=== PATIENT | male | born 1960 | race Caucasian/White ===

== ENCOUNTER 2017-10-05 19:06 | Inpatient (IN) | payer OTHER, BC ==
[2017-10-05] MEDS: ASPIRIN 81 MG TAB PO (19:25)
[2017-10-05] MEDS: SOD CHLORIDE 0.9% 500 ML IV (19:26)
[2017-10-05 19:43] LABS: ADD MAN DIFF? NO
[2017-10-05 19:45] LABS: WHITE BLOOD COUNT 9.2 10^3/ul (4.8-10.8)
[2017-10-05 19:45] LABS: BASOPHIL # 0.1 10^3/ul (0.0-0.1); BASOPHILS % 0.5 % (0.0-2.0); EOSINOPHILS # 0.1 10^3/ul (0.0-0.5); HEMATOCRIT 45.2 % (42.0-52.0); HEMOGLOBIN 14.8 g/dl (14.0-18.0); LYMPHOCYTES # 2.3 10^3/ul (0.8-2.9); LYMPHOCYTES % 24.8 % (15.0-51.0); MEAN CORPUSCULAR HEMOGLOBIN 25.2 pg (29.0-33.0); MEAN CORPUSCULAR HGB CONC 32.7 g/dl (32.0-37.0); MEAN PLATELET VOLUME 10.5 fl (7.4-10.4); MONOCYTE # 0.6 10^3/ul (0.3-0.9); MONOCYTES % 6.2 % (0.0-11.0); NEUTROPHIL # 6.2 10^3/ul (1.6-7.5); NEUTROPHILS % 67.2 % (39.0-77.0); PLATELET COUNT 244 10^3/UL (140-415); RED BLOOD COUNT 5.87 10^6/ul (4.70-6.10); RED CELL DISTRIBUTION WIDTH 13.3 % (11.5-14.5)
[2017-10-05 20:05] LABS: ALANINE AMINOTRANSFERASE 28 IU/L (13-69); ALBUMIN 4.3 g/dl (3.3-4.9); ALBUMIN/GLOBULIN RATIO 1.22; ALKALINE PHOSPHATASE 71 IU/L (42-121); ANION GAP 15 (8-16); ASPARTATE AMINO TRANSFERASE 20 IU/L (15-46); BILIRUBIN,INDIRECT 0.9 mg/dl (0-1.1); BILIRUBIN,TOTAL 0.9 mg/dl (0.2-1.3); BLOOD UREA NITROGEN 20 mg/dl (7-20); CARBON DIOXIDE 24 mmol/L (21-31); CHLORIDE 104 mmol/L (97-110); CREATININE 1.01 mg/dl (0.61-1.24); GLUCOSE 150 mg/dl (70-220); LIPASE 37 U/L (23-300); POTASSIUM 3.7 mmol/L (3.5-5.1); SODIUM 139 mmol/L (135-144); TOTAL PROTEIN 7.8 g/dl (6.1-8.1)
[2017-10-05 20:28] LABS: TROPONIN-I < 0.012 ng/ml (0.000-0.120)
[2017-10-05 20:29] LABS: B-TYPE NATRIURETIC PEPTIDE 79 PG/ML (0-125)
[2017-10-06] MEDS ORDERED: morphine 2 MG INJ IV (07:30)
[2017-10-06] MEDS ORDERED: ALBUTEROL/IPRATROPIUM (NEB) 3 ML AMP HHN (07:30)
[2017-10-06] MEDS ORDERED: NACL 0.9% 3 ML SYG IV (07:30)
[2017-10-06] MEDS ORDERED: ACETAMINOPHEN 325 MG TAB PO (07:30)
[2017-10-06] MEDS ORDERED: ONDANSETRON 4 MG INJ IV (07:30)
[2017-10-06] MEDS ORDERED: NITROGLYCERIN (SL) 0.4 MG TAB SL (07:30)
[2017-10-06] MEDS: PANTOPRAZOLE (EC) 40 MG TAB PO (08:55)
[2017-10-06] MEDS: ASPIRIN 81 MG TAB PO (08:55)
[2017-10-06] MEDS: ENOXAPARIN 40 MG/0.4 ML SYG SC (08:55)
[2017-10-06] MEDS ORDERED: NON-FORMULARY/PATIENT OWN MED (Omeprazole* 20 MG) PO (09:00)
[2017-10-06] MEDS: FLUOXETINE 20 MG CAP PO (09:23)
[2017-10-06] MEDS ORDERED: ZOLPIDEM 5 MG TAB PO (10:00)
[2017-10-06] MEDS ORDERED: hydrALAzine 20 MG INJ IV (10:00)
[2017-10-06 11:43] LABS: ADD MAN DIFF? NO
[2017-10-06 11:46] LABS: WHITE BLOOD COUNT 8.3 10^3/ul (4.8-10.8)
[2017-10-06 11:46] LABS: BASOPHILS % 0.5 % (0.0-2.0); EOSINOPHILS # 0.1 10^3/ul (0.0-0.5); EOSINOPHILS % 1.2 % (0.0-7.0); HEMATOCRIT 48.6 % (42.0-52.0); HEMOGLOBIN 15.7 g/dl (14.0-18.0); LYMPHOCYTES # 1.9 10^3/ul (0.8-2.9); LYMPHOCYTES % 22.6 % (15.0-51.0); MEAN CORPUSCULAR HEMOGLOBIN 25.2 pg (29.0-33.0); MEAN CORPUSCULAR HGB CONC 32.3 g/dl (32.0-37.0); MEAN CORPUSCULAR VOLUME 78.1 fl (82.0-101.0); MEAN PLATELET VOLUME 10.8 fl (7.4-10.4); MONOCYTE # 0.5 10^3/ul (0.3-0.9); MONOCYTES % 5.7 % (0.0-11.0); NEUTROPHIL # 5.8 10^3/ul (1.6-7.5); NEUTROPHILS % 69.6 % (39.0-77.0); PLATELET COUNT 212 10^3/UL (140-415); RED BLOOD COUNT 6.22 10^6/ul (4.70-6.10); RED CELL DISTRIBUTION WIDTH 13.5 % (11.5-14.5)
[2017-10-06 11:59] LABS: HEMOGLOBIN A1C 7.6 % (0-5.9)
[2017-10-06 12:10] LABS: CHOL/HDL RATIO 4.2 RATIO; HDL CHOLESTEROL 48 mg/dl (28-71); LDL CHOLESTEROL,CALCULATED 126 mg/dl; TRIGLYCERIDES 150 mg/dl (0-149)
[2017-10-06 12:10] LABS: CHOLESTEROL 204 mg/dl (100-200)
[2017-10-06 12:21] LABS: TROPONIN-I < 0.012 ng/ml (0.000-0.120)
[2017-10-06] MEDS: SOD CHLORIDE 0.9% 100 ML (17:43)
[2017-10-06] MEDS: IOHEXOL 100 ML (17:43)
[2017-10-06] MEDS: NITROGLYCERIN AEROSOL (4.9 GM) (18:06)
[2017-10-06 20:31] LABS: TROPONIN-I < 0.012 ng/ml (0.000-0.120)
[2017-10-07 05:15] LABS: ADD MAN DIFF? NO
[2017-10-07 05:18] LABS: WHITE BLOOD COUNT 7.9 10^3/ul (4.8-10.8)
[2017-10-07 05:18] LABS: BASOPHIL # 0.1 10^3/ul (0.0-0.1); BASOPHILS % 0.6 % (0.0-2.0); EOSINOPHILS # 0.2 10^3/ul (0.0-0.5); EOSINOPHILS % 1.9 % (0.0-7.0); HEMATOCRIT 45.5 % (42.0-52.0); HEMOGLOBIN 14.9 g/dl (14.0-18.0); LYMPHOCYTES # 1.7 10^3/ul (0.8-2.9); LYMPHOCYTES % 21.7 % (15.0-51.0); MEAN CORPUSCULAR HEMOGLOBIN 25.5 pg (29.0-33.0); MEAN CORPUSCULAR HGB CONC 32.7 g/dl (32.0-37.0); MEAN CORPUSCULAR VOLUME 77.9 fl (82.0-101.0); MEAN PLATELET VOLUME 10.6 fl (7.4-10.4); MONOCYTE # 0.6 10^3/ul (0.3-0.9); MONOCYTES % 7.4 % (0.0-11.0); NEUTROPHIL # 5.4 10^3/ul (1.6-7.5); NEUTROPHILS % 68.3 % (39.0-77.0); PLATELET COUNT 206 10^3/UL (140-415); RED BLOOD COUNT 5.84 10^6/ul (4.70-6.10); RED CELL DISTRIBUTION WIDTH 13.4 % (11.5-14.5)
[2017-10-07] MEDS: PANTOPRAZOLE (EC) 40 MG TAB PO (05:30)
[2017-10-07 05:32] LABS: ALANINE AMINOTRANSFERASE 30 IU/L (13-69); ALBUMIN 4.3 g/dl (3.3-4.9); ALBUMIN/GLOBULIN RATIO 1.43; ALKALINE PHOSPHATASE 61 IU/L (42-121); ANION GAP 17 (8-16); ASPARTATE AMINO TRANSFERASE 20 IU/L (15-46); BILIRUBIN,INDIRECT 1.2 mg/dl (0-1.1); BILIRUBIN,TOTAL 1.2 mg/dl (0.2-1.3); BLOOD UREA NITROGEN 15 mg/dl (7-20); CALCIUM 9.1 mg/dl (8.4-10.2); CARBON DIOXIDE 24 mmol/L (21-31); CHLORIDE 103 mmol/L (97-110); GLUCOSE 144 mg/dl (70-220); SODIUM 140 mmol/L (135-144); TOTAL PROTEIN 7.3 g/dl (6.1-8.1)
[2017-10-07 06:23] LABS: PHOSPHORUS 3.8 mg/dl (2.5-4.9)
[2017-10-07 06:23] LABS: MAGNESIUM 2.1 mg/dl (1.7-2.5)
[2017-10-07] MEDS: FLUOXETINE 20 MG CAP PO (08:45)
[2017-10-07] MEDS: ASPIRIN 81 MG TAB PO (08:45)
[2017-10-07] MEDS: ENOXAPARIN 40 MG/0.4 ML SYG SC (09:54)
[2017-10-07] MEDS: LISINOPRIL 5 MG TAB PO (12:57)
[2017-10-07] MEDS ORDERED: ATORVASTATIN 10 MG TAB PO (21:00)
== END 2017-10-07 15:24 | disposition home or self-care (01) | DRG 313 ==
LOC: MS3 10-06 01:48 → E/R 19:06
PROVIDERS: Internal Medicine
DX: R07.9 Chest pain, unspecified (principal); I10 Essential (primary) hypertension; E66.9 Obesity, unspecified; F17.220 Nicotine dependence, chewing tobacco, uncomplicated; R00.1 Bradycardia, unspecified; E11.9 Type 2 diabetes mellitus without complications; Z96.612 Presence of left artificial shoulder joint; F32.9 Major depressive disorder, single episode, unspecified
CPT/HCPCS: 36415; 71045; 75574; 80053; 80061; 83036; 83690; 83735; 83880; 84100; 84443; 84484; 85025; 93005; 93306; 96372; 99285-25

== ENCOUNTER → 2017-10-28 | Outpatient (CLI) | payer OTHER, BC | END | disposition home or self-care (01) | LOC: DIB 11:00 | DX: Z02.9 Encounter for administrative examinations, unspecified (principal) ==